=== PATIENT | female | born 1955 | race Two or more races ===

== ENCOUNTER 2021-06-23 07:12 | Outpatient (CLI) | payer OTHER | END 2021-06-23 07:25 | disposition home or self-care (01) | LOC: LAB 07:12 | DX: U07.1 COVID-19 (principal); B34.1 Enterovirus infection, unspecified ==

== ENCOUNTER 2021-06-23 08:44 | Outpatient (CLI) | payer OTHER | END 2021-06-23 08:45 | disposition home or self-care (01) | LOC: NUCLEAR 08:44 | DX: R07.9 Chest pain, unspecified (principal) ==